=== PATIENT | female | born 1985 | race African-American/Black ===

== ENCOUNTER 2021-11-28 05:31 | Inpatient (IN) ==
[2021-11-28] MEDS ORDERED: ONDANSETRON 4 MG/2 ML VIAL IV PRN ×2 (05:41→09:02)
[2021-11-28] MEDS ORDERED: TRANEXAMIC ACID 1,000 MG in SODIUM CHLORIDE 0.9% 100 ML IV PRN (05:41)
[2021-11-28] MEDS ORDERED: METHYLERGONOVINE 0.2 MG/1 ML AMP IM PRN (05:41)
[2021-11-28] MEDS ORDERED: LACTATED RINGERS 500 ML IV PRN (05:41)
[2021-11-28] MEDS ORDERED: BUTORPHANOL 1 MG/ML VIAL IV PRN (05:41)
[2021-11-28] MEDS ORDERED: ACETAMINOPHEN 500 MG TABLET PO PRN (05:41)
[2021-11-28] MEDS ORDERED: OXYTOCIN/LR 20 UNIT/1,000 ML BAG IV ONE ×3 (05:41→09:02)
[2021-11-28] MEDS ORDERED: MEPERIDINE 50 MG/1 ML VIAL IV PRN ×2 (05:41→05:50)
[2021-11-28] MEDS ORDERED: CARBOPROST TROMETHAMINE 250 MCG/ML AMP IM PRN (05:41)
[2021-11-28] MEDS ORDERED: miSOPROStoL 200 MCG TABLET RECTAL PRN (05:41)
[2021-11-28] MEDS ORDERED: BUTORPHANOL 2 MG/ML VIAL IV PRN (05:41)
[2021-11-28] MEDS ORDERED: LACTATED RINGERS 1,000 ML IV ONE (05:47)
[2021-11-28] MEDS ORDERED: CITRIC ACID/SODIUM CITRATE 30 ML UDCUP PO ONE (05:47)
[2021-11-28] MEDS ORDERED: FAMOTIDINE 20 MG/2 ML VIAL IV ONE (05:47)
[2021-11-28] MEDS ORDERED: LACTATED RINGERS 1,000 ML IV SCH ×2 (06:00→09:30)
[2021-11-28 06:23] LABS: Basophils % 0.2 % (0.0-0.8); Eosinophils # 0.1 10*3/uL (0.0-0.87); Eosinophils % 0.4 % (0.00-10.9); Hematocrit 29.9 VOL% (35.7-47.0); Hemoglobin 9.7 GM/DL (12.0-16.0); Immature Granulocytes % 0.4 %; Immature Granulocytes Absolute 0.05 #; Lymphocytes % 25.6 % (21.3-54.2); Mean Corpuscular HGB Conc 32.4 GM/DL (32-36); Mean Corpuscular Volume 87.7 FL (87-102); Mean Platelet Volume 11.5 FL (9.6-12.0); Monocytes # 0.7 10*3/uL (0.11-0.8); NRBC # 0.04 10*3/uL; Neutrophils % 67.4 % (38.7-73.9); Platelet Count 254 T/CUMM (130-400); Red Blood Count 3.41 MC/CUMM (3.8-5.5); Red Cell Distribution Width 13.2 % (9.3-17.3); White Blood Count 11.6 T/CUMM (4-12)
[2021-11-28] MEDS ORDERED: KETOROLAC 30 MG/1 ML VIAL IV SCH (06:30)
[2021-11-28] MEDS ORDERED: ACETAMINOPHEN 500 MG TABLET PO SCH (06:30)
[2021-11-28 06:51] LABS: Albumin 2.4 G/DL (3.4-5.0); Bilirubin,Total 0.6 MG/DL (0.20-1.00); Osmolality,Calculated 272.5 MOS/KG (273-304); Potassium 3.8 MMOL/L (3.5-5.1); Total Protein 6.9 G/DL (6.4-8.2)
[2021-11-28] MEDS ORDERED: ceFAZolin 2,000 MG/50 ML DUPLEX IV ONE (07:00)
[2021-11-28] MEDS ORDERED: buprenorphine HCL 0.3 MG/ML VIAL ONE (07:04)
[2021-11-28] MEDS ORDERED: BUPIVACAINE SPINAL 0.75% 2 ML AMP SPINAL ONE (07:04)
[2021-11-28] MEDS ORDERED: BUPIVACAINE MPF 0.5% 30 ML VIAL ONE (07:06)
[2021-11-28] MEDS ORDERED: miSOPROStoL 200 MCG TABLET ONE (07:16)
[2021-11-28] MEDS ORDERED: CARBOPROST TROMETHAMINE 250 MCG/ML AMP IM ONE (07:17)
[2021-11-28] MEDS ORDERED: METHYLERGONOVINE 0.2 MG/1 ML AMP ONE (07:17)
[2021-11-28] MEDS ORDERED: ePHEDrine 50 MG/ML VIAL ONE (07:58)
[2021-11-28] MEDS ORDERED: ONDANSETRON 4 MG/2 ML VIAL ONE (08:11)
[2021-11-28 08:24] LABS: Cord Arterial Blood HCO3 19.9 MMOL/L
[2021-11-28 08:27] LABS: Cord Venous Blood PCO2 47.5 MMHG; Cord Venous Blood PO2 30.3
[2021-11-28 08:28] LABS: Bilirubin,Urine Negative (Negative); Blood, Urine Negative (Negative); Glucose,Urine (UA) Negative (Negative); Ketones,Urine 40 mg/dL (Negative); Mucus,Urine Moderate /LPF (Occasional); Nitrite,Urine Negative (Negative); Protein,Urine 30 mg/dL (Negative); RBC,Urine 1 /HPF (0-4); Squamous Epithelial Cell,Urine Occasional /HPF (0-10); Urine Appearance Clear (Clear); Urine Color Yellow (Yellow); Urine Urobilinogen 0.2 eU/dL (<2.0)
[2021-11-28] MEDS ORDERED: MAGNESIUM HYDROXIDE SUSP 30 ML UDCUP PO PRN (09:02)
[2021-11-28] MEDS ORDERED: RHO(D) IMMUNE GLOBULIN 300 MCG SYRINGE IM ONE (09:02)
[2021-11-28] MEDS ORDERED: IBUPROFEN 800 MG TABLET PO PRN (09:02)
[2021-11-28] MEDS ORDERED: ACETAMINOPHEN 325 MG TABLET PO PRN (09:02)
[2021-11-28] MEDS ORDERED: SIMETHICONE CHEW 80 MG TABLET PO PRN (09:02)
[2021-11-28] MEDS: KETOROLAC 30 MG/1 ML VIAL IV SCH ×2 (10:44→17:57)
[2021-11-28] MEDS ORDERED: PROMETHAZINE 25 MG/1 ML VIAL IM PRN (11:56)
[2021-11-28] MEDS: ACETAMINOPHEN 500 MG TABLET PO SCH ×2 (12:30→17:52)
[2021-11-28] MEDS ORDERED: diphenhydrAMINE 50 MG/1 ML VIAL IV PRN (21:22)
[2021-11-29] MEDS: ACETAMINOPHEN 500 MG TABLET PO SCH ×2 (00:01→05:41)
[2021-11-29] MEDS: KETOROLAC 30 MG/1 ML VIAL IV SCH ×2 (00:01→05:42)
[2021-11-29 05:53] LABS: Basophils % 0.1 % (0.0-0.8); Eosinophils % 0.2 % (0.00-10.9); Hematocrit 25.4 VOL% (35.7-47.0); Hemoglobin 8.2 GM/DL (12.0-16.0); Immature Granulocytes % 0.2 %; Immature Granulocytes Absolute 0.03 #; Lymphocytes # 2.7 10*3/uL (1.4-4.0); Lymphocytes % 19.7 % (21.3-54.2); Mean Corpuscular HGB Conc 32.3 GM/DL (32-36); Mean Corpuscular Volume 88.8 FL (87-102); Mean Platelet Volume 11.7 FL (9.6-12.0); Monocytes # 0.8 10*3/uL (0.11-0.8); Monocytes % 5.9 % (1.7-12.7); NRBC # 0.02 10*3/uL; Neutrophils % 73.9 % (38.7-73.9); Platelet Count 209 T/CUMM (130-400); Red Blood Count 2.86 MC/CUMM (3.8-5.5); White Blood Count 13.6 T/CUMM (4-12)
[2021-11-29] MEDS: FERROUS SULFATE 325 MG TABLET PO SCH ×2 (08:49→21:24)
[2021-11-29] MEDS: MULTIVITAMIN (PRENATAL) TABLET PO SCH (08:49)
[2021-11-29] MEDS: DOCUSATE SODIUM 100 MG CAPSULE PO SCH ×2 (08:49→21:24)
[2021-11-29] MEDS ORDERED: BISACODYL 10 MG SUPP RECTAL PRN (21:35)
[2021-11-30] MEDS: DOCUSATE SODIUM 100 MG CAPSULE PO SCH (08:38)
[2021-11-30] MEDS: FERROUS SULFATE 325 MG TABLET PO SCH (08:38)
[2021-11-30] MEDS: MULTIVITAMIN (PRENATAL) TABLET PO SCH (08:38)
[2021-11-30 17:16] VITALS: BP 143/73
== END 2021-11-30 13:40 | disposition home or self-care (01) | DRG 539 ==
LOC: N.LD 05:31 → N.OB 11:39
PROVIDERS: ADMIT Obstetrics & Gynecology; ATTEND Obstetrics & Gynecology